=== PATIENT | male | born 1975 | race Caucasian/White ===

== ENCOUNTER → 2017-09-08 | Outpatient (CLI) | payer OTHER ==
--- NOTE | 2017-09-08 08:55 | XR ---
EXAMINATION TYPE: XR Hip Complete RT DATE OF EXAM: 09/08/2017 COMPARISON: NONE HISTORY: Pain TECHNIQUE: 2 views submitted FINDINGS: There is no evidence of erosive change or acute fracture. SI joint is patent. IMPRESSION: 1. No evidence of acute fracture or dislocation.
== END | disposition home or self-care (01) ==
LOC: RADXRMAIN 08:08
PROVIDERS: ATTEND Family Medicine
DX: M25.551 Pain in right hip (principal)
CPT/HCPCS: 73502

== ENCOUNTER → 2017-09-29 | Outpatient (CLI) | payer OTHER ==
--- NOTE | 2017-09-29 08:39 | MR ---
EXAMINATION TYPE: MR hip RT wo con DATE OF EXAM: 09/29/2017 COMPARISON: Right hip radiographs dated 09/08/2018 HISTORY: Right hip pain for approximately 18 years TECHNIQUE Standard multiplanar, multisequence MRI departmental protocol. Multiplanar, multisequence images of the right hip were acquired without intravenous contrast. FINDINGS: There is a small fat filled right inguinal hernia. No left inguinal hernia is identified. T he femoral heads maintain a rounded morphology without evidence of avascular necrosis, subchondral fr acture, subchondral collapse, or acute fracture. No bone marrow edema is identified. There is mild fe moral acetabular arthropathy demonstrated bilaterally that is symmetric with minimal joint space narr owing and minimal acetabular roof sclerosis. No suspicious osseous lesions are seen. Evaluation of th e labrum is limited on this nonarthrographic study and evaluation is also slightly limited throughout the exam secondary to patient motion artifact. The sacroiliac joints are symmetric. No evidence of sacroiliac joint space widening. Hip girdle muscu lature volume and signal are grossly unremarkable other than very subtle and mild increased signal at the greater trochanter on the right at the insertion of the gluteal musculature. Urinary bladder wright are circumferentially thickened although this likely relates to incomplete dist ention. Incidental note is made of a probable left hydrocele. IMPRESSION: 1. Small fat filled right inguinal hernia. 2. No evidence of acute fracture, dislocation, suspicious osseous lesion, bone marrow edema, or avasc ular necrosis of the hips. 3. Mild bilateral femoral acetabular arthropathy. 4. Minimal increased signal at the insertion site of the right gluteal musculature on the greater tro chanter that may indicate mild gluteal bursitis or gluteal tendinosis. 5. Circumferential thickening of the urinary bladder wall, likely related to incomplete distention al though correlation with urinalysis is recommended to exclude cystitis.
== END | disposition home or self-care (01) ==
LOC: RADMRIMAIN 07:38
PROVIDERS: ATTEND Family Medicine
DX: M16.0 Bilateral primary osteoarthritis of hip (principal); R93.7 Abnormal findings on diagnostic imaging of other parts of musculoskeletal system

== ENCOUNTER → 2017-12-08 | Outpatient (CLI) | payer OTHER | END | disposition home or self-care (01) | LOC: LABWHC1 14:42 | PROVIDERS: ATTEND Family Medicine | DX: R07.89 Other chest pain (principal) | CPT/HCPCS: 36415; 93005 ==

== ENCOUNTER → 2017-12-22 | Outpatient (CLI) | payer OTHER ==
--- NOTE | 2017-12-22 12:05 | EST ---
EXERCISE STRESS AGE: 42 SEX: M HT: 64" WT: 148 PROTOCOL: Rogelio Stress Test STAGE: 5 DURATION OF EXERCISE: 11:34 HEART RATE REST: 85 BLOOD PRESSURE REST: 137/74 MAXIMUM HEART RATE ACHIEVED: 166 MAXIMUM BLOOD PRESSURE: 212/97 85% MPHR: 153 100% MPHR: 180 METS: 12.3 INDICATIONS: Chest pain. CLINICAL INFORMATION: Baseline EKG revealed normal sinus rhythm without significant ST-T changes. Patient walked on a standard Rogelio protocol for 12 minutes, achieved a maximal heart rate of 166 beats per minute. He developed fatigue and shortness of breath but did not have any angina or arrhythmia. EKG did not reveal any ST-segment changes to indicate ischemia. By EKG criteria, this is a negative stress test with excellent exercise capacity. IMPRESSION: 1. Negative stress test. Good exercise capacity. 2. No EKG changes or angina. MMWARD / ASHKANN: [id number] /
== END | disposition home or self-care (01) ==
LOC: RADNMMAIN 11:09
PROVIDERS: ATTEND Family Medicine
DX: R07.9 Chest pain, unspecified (principal)
CPT/HCPCS: 93017

== ENCOUNTER → 2018-08-03 | Outpatient (CLI) | payer BC ==
--- NOTE | 2018-08-03 13:55 | XR ---
Right wrist HISTORY: Trauma 2 weeks prior, pain 4 views of the right wrist Bone mineralization, joint spaces and alignment are maintained. IMPRESSION: No fracture or dislocation.
== END | disposition home or self-care (01) ==
LOC: RADXRMAIN 11:23
PROVIDERS: ATTEND Family Medicine
DX: M25.531 Pain in right wrist (principal)

== ENCOUNTER → 2019-01-25 | Outpatient (CLI) | payer BC ==
--- NOTE | 2019-01-25 10:29 | MR ---
MR right humerus within without contrast HISTORY: Swelling, mass Multiplanar multisequence and postcontrast imaging following 7.5 cc Gadavist IV. There is an overlyin g marker at the site of patient's symptomatology. Bone marrow signal is maintained. At the site of the patient's overlying marker there is a mass which shows fat signal on all pulse sequences. The mass measures approximately 8 x 3.3 x 3.8 cm within the biceps musculature and shows a bilobed and well-circumscribed appearance. No abnormal enhancement fo llowing contrast administration. IMPRESSION: Findings compatible with an intramuscular lipoma.
== END | disposition home or self-care (01) ==
LOC: RADMRIMAIN 09:04
PROVIDERS: ATTEND Family Medicine
DX: R22.31 Localized swelling, mass and lump, right upper limb (principal)

== ENCOUNTER 2020-10-09 22:57 | Inpatient (IN) | payer BC ==
[2020-10-09 23:39] LABS: Glucose,Whole Blood 342 mg/dL (75-99)
[2020-10-09] MEDS ORDERED: ONDANSETRON 4 MG/2 ML VIAL IVP STA (23:49)
[2020-10-09] MEDS ORDERED: SODIUM CHLORIDE 0.9% 1,000 ML IV STA (23:49)
[2020-10-10 00:09] LABS: Basophils # (A) 0.1 k/uL (0-0.2); Basophils % (A) 1 %; Eosinophils % (A) 0 %; HCT 51.6 % (39.0-53.0); HGB 18.2 gm/dL (13.0-17.5); Lymphocytes # (A) 0.9 k/uL (1.0-4.8); Lymphocytes % (A) 10 %; MCH 31.2 pg (25.0-35.0); MCHC 35.3 g/dL (31.0-37.0); MCV 88.6 fL (80.0-100.0); Mean Platelet Volume 9.7; Monocytes # (A) 0.4 k/uL (0-1.0); Monocytes % (A) 4 %; Neutrophils # (A) 8.2 k/uL (1.3-7.7); Neutrophils % (A) 84 %; Platelet Count 208 k/uL (150-450); RBC 5.83 m/uL (4.30-5.90); RDW 12.9 % (11.5-15.5); WBC 9.7 k/uL (3.8-10.6)
[2020-10-10 00:25] LABS: ALT 44 U/L (4-49); AST 34 U/L (17-59); African American GFR (CKD) >90 (>60 ml/min/1.73 sqM); Albumin 4.7 g/dL (3.5-5.0); Alkaline Phosphatase 137 U/L (38-126); Anion Gap 25 mmol/L; Blood Urea Nitrogen 18 mg/dL (9-20); Calcium 9.8 mg/dL (8.4-10.2); Chloride 99 mmol/L (98-107); Glucose 373 mg/dL (74-99); Lipase 37 U/L (23-300); Non-African American GFR(CKD) >90 (>60 ml/min/1.73 sqM); Potassium 4.9 mmol/L (3.5-5.1); Sodium 133 mmol/L (137-145); Total Bilirubin 0.7 mg/dL (0.2-1.3); Total Protein 7.8 g/dL (6.3-8.2)
--- NOTE | 2020-10-10 00:51 | ED ---
Nausea/Vomiting/Diarrhea HPI - General Source: patient Mode of arrival: wheelchair Limitations: no limitations <Angelica Jorge - Last Filed: 10/10/20 02:34> <Catia Cope - Last Filed: 10/15/20 02:54> - General Chief complaint: Nausea/Vomiting/Diarrhea Stated complaint: weakness, covid+ Time Seen by Provider: 10/09/20 23:42 - History of Present Illness Initial comments: Patient is a 45-year-old male, with history of DM, presenting to the emergency Department with complaints of nausea and vomiting and some abdominal cramping that started last few days. Patient tested positive for Covid on 10/05/2020. He states most of the symptoms have been related to the nausea, body aches and fatigue. He denies any chest pains, no shortness of breath or coughing. He states some mild diarrhea but that has since gotten better. He states he is not able to keep anything down and feels really dehydrated. He does have history of diabetes. He states he has not been eating much food so has not been checking her sugars or taking his insulin. He is no further complaints at this time. Upon arrival to the ER, he is slightly tachycardia, Rest of vitals normal. (Angelica Jorge) - Related Data Home Medications Medication Instructions Recorded Confirmed Atorvastatin [Lipitor] 80 mg PO AC-SUPPER 10/10/20 10/10/20 Previous Rx's Medication Instructions Recorded Insulin Aspart (Niacinamide) 5 units SQ AC-TID #0 10/11/20 [Fiasp 100 Unit/ml Flextouch] Insulin Degludec [Tresiba 44 units SQ HS #0 10/11/20 Flextouch U-200] Allergies Allergy/AdvReac Type Severity Reaction Status Date / Time No Known Allergies Allergy Verified 10/10/20 10:00 Review of Systems ROS Other: All systems not noted in ROS Statement are negative. <Angelica Jorge - Last Filed: 10/10/20 02:34> ROS Other: All systems not noted in ROS Statement are negative. <Catia Cope - Last Filed: 10/15/20 02:54> ROS Statement: Those systems with pertinent positive or pertinent negative responses have been documented in the HPI. Past Medical History Past Medical History: Diabetes Mellitus History of Any Multi-Drug Resistant Organisms: None Reported Past Surgical History: Hernia Repair Past Psychological History: No Psychological Hx Reported Smoking Status: Former smoker Past Alcohol Use History: None Reported Past Drug Use History: Marijuana <Angelica Jorge - Last Filed: 10/10/20 02:34> General Exam Limitations: no limitations <Angelica Jorge - Last Filed: 10/10/20 02:34> - General Exam Comments Initial Comments: GENERAL: Patient is well-developed and well-nourished. Patient is nontoxic and in mild distress, actively dry heaving. HEAD: Atraumatic, normocephalic. EYES: Pupils equal round and reactive to light, extraocular movements intact, sclera anicteric, conjunctiva are normal. Eyelids were unremarkable. ENT: TMs normal, nares patent, oropharynx clear without exudates. Moist mucous membranes. NECK: Normal range of motion, supple without lymphadenopathy or JVD. LUNGS: Unlabored respirations. Breath sounds clear to auscultation bilaterally and equal. No wheezes rales or rhonchi. HEART: Regular rate and rhythm without murmurs, rubs or gallops. ABDOMEN: Soft, he has scattered mild discomfort on palpation, no specific area pain., normoactive bowel sounds. No guarding, no rebound. No masses appreciated. : Deferred MUSCULOSKELETAL: Normal extremities with adequate strength and normal range of motion, no pitting or edema. No clubbing or cyanosis. NEUROLOGICAL: Patient is alert and oriented x 3. Motor and sensory are also intact. Cranial nerves II through XII grossly intact. Symmetrical smile. Normal speech, normal gait. PSYCH: Normal mood, normal affect. SKIN: Warm, Dry, normal turgor, no rashes or lesions noted. (Angelica Jorge) Course Vital Signs 10/09/20 10/10/20 10/10/20 22:59 01:03 02:59 Temperature 97.4 F L Pulse Rate 119 H 89 77 Respiratory 22 16 Rate Blood Pressure 158/91 133/80 O2 Sat by Pulse 98 98 98 Oximetry Medical Decision Making - Lab Data Result diagrams: 10/10/20 00:00 10/10/20 00:00 <Angelica Jorge - Last Filed: 10/10/20 02:34> - Lab Data Result diagrams: 10/10/20 00:00 10/11/20 14:07 <Catia Cope - Last Filed: 10/15/20 02:54> - Medical Decision Making Patient is a 45-year-old male with history of diabetes presenting with nausea and vomiting over the past few days. He is Covid positive, positive test on 10/05/2020. No respiratory symptoms. His vital signs are stable. Labs show a normal white count, VBG shows 7.26, bicarbonate 14, sodium is 133, potassium is 4.9. Carbon dioxide is low at 9. Glucose is 373, urine shows 4+ glucose and 4+ ketones. Acetone is positive. Patient given 2 L fluid bolus. Patient will be admitted for DKA, started on insulin drip. Patient accepted by Dr. Campos for Dr. Guevara. Case discussed with Dr. Cope. (Angelica Jorge) I was available for consultation in the emergency department. The history and physical exam were done by the midlevel provider. I was consulted for this patie nts care. I reviewed the case with the midlevel provider and based on their presentation of the patient, I agree with the assessment, medical decision making and plan of care as documented. Chart was dictated using [employer] dictation software. Attempts were made to correct any dictation errors however some typographical errors may persist. Patient was seen during a national state of emergency due to the Covid-19 pandemic. (Catia Cope) - Lab Data Lab Results 10/09/20 10/10/20 10/10/20 Range/Units 23:38 00:00 00:00 WBC 9.7 (3.8-10.6) k/uL RBC 5.83 (4.30-5.90) m/uL Hgb 18.2 H (13.0-17.5) gm/dL Hct 51.6 (39.0-53.0) % MCV 88.6 (80.0-100.0) fL MCH 31.2 (25.0-35.0) pg MCHC 35.3 (31.0-37.0) g/dL RDW 12.9 (11.5-15.5) % Plt Count 208 (150-450) k/uL MPV 9.7 Neutrophils % 84 % Lymphocytes % 10 % Monocytes % 4 % Eosinophils % 0 % Basophils % 1 % Neutrophils # 8.2 H (1.3-7.7) k/uL Lymphocytes # 0.9 L (1.0-4.8) k/uL Monocytes # 0.4 (0-1.0) k/uL Eosinophils # 0.0 (0-0.7) k/uL Basophils # 0.1 (0-0.2) k/uL VBG pH (7.31-7.41) VBG pCO2 (37-51) mmHg VBG HCO3 (24-28) mmol/L Sodium 133 L (137-145) mmol/L Potassium 4.9 (3.5-5.1) mmol/L Chloride 99 (98-107) mmol/L Carbon Dioxide 9 L* (22-30) mmol/L Anion Gap 25 mmol/L BUN 18 (9-20) mg/dL Creatinine 0.76 (0.66-1.25) mg/dL Est GFR (CKD-EPI)AfAm >90 (>60 ml/min/1.73 sqM) Est GFR (CKD-EPI)NonAf >90 (>60 ml/min/1.73 sqM) Glucose 373 H (74-99) mg/dL POC Glucose (mg/dL) 342 H (75-99) mg/dL POC Glu Sourcing Intern ID Deanna Hyman Calcium 9.8 (8.4-10.2) mg/dL Total Bilirubin 0.7 (0.2-1.3) mg/dL AST 34 (17-59) U/L ALT 44 (4-49) U/L Alkaline Phosphatase 137 H (38-126) U/L Total Protein 7.8 (6.3-8.2) g/dL Albumin 4.7 (3.5-5.0) g/dL Lipase 37 (23-300) U/L Urine Color Urine Appearance (Clear) Urine pH (5.0-8.0) Ur Specific Gardner (1.001-1.035) Urine Protein (Negative) Urine Glucose (UA) (Negative) Urine Ketones (Negative) Urine Blood (Negative) Urine Nitrite (Negative) Urine Bilirubin (Negative) Urine Urobilinogen (<2.0) mg/dL Ur Leukocyte Esterase (Negative) Urine RBC (0-5) /hpf Urine WBC (0-5) /hpf Hyaline Casts (0-2) /lpf Urine Mucus (None) /hpf Acetone, Qual (Negative) 10/10/20 10/10/20 10/10/20 Range/Units 00:00 01:17 01:44 WBC (3.8-10.6) k/uL RBC (4.30-5.90) m/uL Hgb (13.0-17.5) gm/dL Hct (39.0-53.0) % MCV (80.0-100.0) fL MCH (25.0-35.0) pg MCHC (31.0-37.0) g/dL RDW (11.5-15.5) % Plt Count (150-450) k/uL MPV Neutrophils % % Lymphocytes % % Monocytes % % Eosinophils % % Basophils % % Neutrophils # (1.3-7.7) k/uL Lymphocytes # (1.0-4.8) k/uL Monocytes # (0-1.0) k/uL Eosinophils # (0-0.7) k/uL Basophils # (0-0.2) k/uL VBG pH 7.26 L (7.31-7.41) VBG pCO2 33 L (37-51) mmHg VBG HCO3 14 L (24-28) mmol/L Sodium (137-145) mmol/L Potassium (3.5-5.1) mmol/L Chloride (98-107) mmol/L Carbon Dioxide (22-30) mmol/L Anion Gap mmol/L BUN (9-20) mg/dL Creatinine (0.66-1.25) mg/dL Est GFR (CKD-EPI)AfAm (>60 ml/min/1.73 sqM) Est GFR (CKD-EPI)NonAf (>60 ml/min/1.73 sqM) Glucose (74-99) mg/dL POC Glucose (mg/dL) (75-99) mg/dL POC Glu Sourcing Intern ID Calcium (8.4-10.2) mg/dL Total Bilirubin (0.2-1.3) mg/dL AST (17-59) U/L ALT (4-49) U/L Alkaline Phosphatase (38-126) U/L Total Protein (6.3-8.2) g/dL Albumin (3.5-5.0) g/dL Lipase (23-300) U/L Urine Color Light Yellow Urine Appearance Clear (Clear) Urine pH 5.0 (5.0-8.0) Ur Specific Gardner 1.034 (1.001-1.035) Urine Protein 1+ H (Negative) Urine Glucose (UA) 4+ H (Negative) Urine Ketones 4+ H (Negative) Urine Blood Negative (Negative) Urine Nitrite Negative (Negative) Urine Bilirubin Negative (Negative) Urine Urobilinogen <2.0 (<2.0) mg/dL Ur Leukocyte Esterase Negative (Negative) Urine RBC <1 (0-5) /hpf Urine WBC 1 (0-5) /hpf Hyaline Casts 1 (0-2) /lpf Urine Mucus Rare H (None) /hpf Acetone, Qual Positive (Negative) Critical Care Time Critical Care Time: Yes Total Critical Care Time: 35 (History of diabetes, 2 days of nausea and vomiting, cold with positive. Patient is in DKA, started on insulin drip, patient be admitted to hospital.) <Angelica Jorge - Last Filed: 10/10/20 02:34> Disposition Decision Date: 10/10/20 Decision Time: 02:15 <Angelica Jorge - Last Filed: 10/10/20 02:34> <Catia Cope - Last Filed: 10/15/20 02:54> Clinical Impression: DKA (diabetic ketoacidoses), COVID-19 Disposition: ADMITTED IP TO THIS [facility] Condition: Stable
[2020-10-10 01:07] LABS: Carbon Dioxide 9 mmol/L (22-30)
[2020-10-10 01:26] LABS: VBG PH 7.26 (7.31-7.41)
[2020-10-10 01:48] LABS: Appearance,Urine Clear (Clear); Bilirubin,Urine Negative (Negative); Blood,Urine Negative (Negative); Color,Urine Light Yellow; Glucose,Urine (UA) 4+ (Negative); Hyaline Casts,Urine 1 /lpf (0-2); Leukocyte Esterase,Urine Negative (Negative); Mucus,Urine Rare /hpf; Nitrite,Urine Negative (Negative); Protein,Urine 1+ (Negative); RBC,Urine <1 /hpf (0-5); Specific Gravity,Urine 1.034 (1.001-1.035); Urobilinogen,Urine <2.0 mg/dL (<2.0); WBC,Urine 1 /hpf (0-5)
[2020-10-10 01:59] LABS: Ketones,Urine 4+ (Negative)
[2020-10-10] MEDS ORDERED: SODIUM CHLORIDE 0.9% 1,000 ML IV STA (02:02)
[2020-10-10] MEDS ORDERED: D5-0.45% NACL WITH KCL 20MEQ/L 1,000 ML IV SCH (02:15)
[2020-10-10] MEDS ORDERED: INSULIN REGULAR 100 UNIT in SODIUM CHLORIDE 0.9% 100 ML IV SCH (02:30)
[2020-10-10] MEDS: SODIUM CHLORIDE 0.9% 1,000 ML IV SCH ×5 (02:33→21:02)
[2020-10-10 04:09] LABS: Glucose,Whole Blood 218 mg/dL (75-99)
[2020-10-10 05:05] LABS: Glucose,Whole Blood 174 mg/dL (75-99)
[2020-10-10] MEDS: D5-0.45% NACL WITH KCL 20MEQ/L 1,000 ML IV SCH ×2 (05:32→12:44)
[2020-10-10 05:51] LABS: African American GFR (CKD) >90 (>60 ml/min/1.73 sqM); Anion Gap 15 mmol/L; Blood Urea Nitrogen 17 mg/dL (9-20); Carbon Dioxide 13 mmol/L (22-30); Chloride 110 mmol/L (98-107); Glucose 182 mg/dL (74-99); Non-African American GFR(CKD) >90 (>60 ml/min/1.73 sqM); Phosphorus 2.7 mg/dL (2.5-4.5); Potassium 4.1 mmol/L (3.5-5.1); Sodium 138 mmol/L (137-145)
[2020-10-10 05:57] LABS: Glucose,Whole Blood 168 mg/dL (75-99)
[2020-10-10 07:09] LABS: Glucose,Whole Blood 141 mg/dL (75-99)
[2020-10-10 08:00] LABS: Glucose,Whole Blood 153 mg/dL (75-99)
[2020-10-10 09:08] LABS: Glucose,Whole Blood 132 mg/dL (75-99)
[2020-10-10 09:15] LABS: African American GFR (CKD) >90 (>60 ml/min/1.73 sqM); Anion Gap 9 mmol/L; Blood Urea Nitrogen 16 mg/dL (9-20); Carbon Dioxide 18 mmol/L (22-30); Chloride 109 mmol/L (98-107); Glucose 142 mg/dL (74-99); Non-African American GFR(CKD) >90 (>60 ml/min/1.73 sqM); Phosphorus 2.3 mg/dL (2.5-4.5); Sodium 136 mmol/L (137-145)
[2020-10-10 10:08] LABS: Glucose,Whole Blood 116 mg/dL (75-99)
[2020-10-10] MEDS ORDERED: INSULIN NPH 300 UNIT/3 ML VIAL SQ SCH (10:45)
[2020-10-10 10:56] LABS: Glucose,Whole Blood 104 mg/dL (75-99)
[2020-10-10 11:47] LABS: Glucose,Whole Blood 116 mg/dL (75-99)
[2020-10-10] MEDS: INSULIN ASPART (NovoLOG) 100 UNIT/ML VIAL SQ SCH ×5 (12:22→21:01)
[2020-10-10] MEDS: ENOXAPARIN 40 MG/0.4 ML SYRINGE SQ SCH (12:39)
[2020-10-10 13:45] VITALS: BMI 25.8
[2020-10-10 16:45] LABS: Glucose,Whole Blood 199 mg/dL (75-99)
[2020-10-10] MEDS: METOCLOPRAMIDE 10 MG TAB PO SCH (17:06)
[2020-10-10] MEDS ORDERED: ATORVASTATIN 80 MG TAB PO SCH (17:30)
[2020-10-10 19:44] LABS: Glucose,Whole Blood 173 mg/dL (75-99)
--- NOTE | 2020-10-10 19:58 | P.HPIM ---
History of Present Illness H&P Date: 10/10/20 Chief Complaint: Short of breath History of presenting complaint: This is a pleasant 44-year-old patient of Dr. Park Cardenas. Patient presents to the ER with nausea vomiting some abdominal cramping starting about to 3 days ago. Patient has tested positive for COVID on October 05. Patient decided not to take his long-acting insulin. 2 days prior to the COVID testing positive feels tired sluggish. Became short of breath. Some cough. Decrease appetite. No diarrhea. Had headaches and body aches. Loss of smell and taste. Patient presented to ER was found to be in diabetic ketoacidosis. Put on insulin drip. This morning his anion gap closed. Denied any fever and chills has slight nausea. Review of systems: GEN.: Tired, decreased appetite EYES: None HEENT: None NECK: None RESPIRATORY: As above CARDIOVASCULAR: None GASTROINTESTINAL: As above GENITOURINARY: None MUSCULOSKELETAL: Bodyache LYMPHATICS: None HEMATOLOGICAL: None PSYCHIATRY: None NEUROLOGICAL: None Past medical history to include: Diabetes, Social history: . Works at the [employer]. Marijuana occasionally. Physical examination: VITAL SIGNS: 97.4, 119, 22, 158/91, 98% room air upon presentation GENERAL: BMI 25.8, laying in bed a bit tired awake. EYES: Pupils equal. Conjunctiva normal. HEENT: External appearance of nose and ears normal, oral cavity dry. NECK: JVD not raised; masses not palpable. HEART: First and second heart sounds are normal; no edema. LUNGS: Respiratory rate normal; clear to auscultation. ABDOMEN: Soft, nontender, liver spleen not palpable, no masses palpable. PSYCH: Alert and oriented x3; mood and affect normal. NEUROLOGICAL: Cranial nerves grossly intact; no facial asymmetry, power and sensation grossly intact. LYMPHATICS: No lymph nodes palpable in the axilla and neck INVESTIGATIONS, reviewed in the clinical context: WBC 9.7 hemoglobin 18.2 platelets 208 potassium 4.9 creatinine 0.76 bicarb 9 blood glucose 373 blood acetone positive Coronavirus [PCR]-detected Assessment and plan: -Diabetic ketoacidosis from having patient missed his insulin Patient is put on a DQ protocol and IV insulin drip. Patient is gap corrected this morning. -Diabetes mellitus type 1 I ordered insulin NPH 20 units this morning. We will resume patient's long- acting insulin this evening. -Acute gastroenteritis possibly from COVID 19 Self-limiting. IV fluids Care was discussed with the patient. We'll put the patient on full liquids for lunch. Increase activity as tolerated. Lovenox for DVT prophylaxis. See how he progresses. Repeat labs in the morning. Past Medical History Past Medical History: Diabetes Mellitus, Eye Disorder History of Any Multi-Drug Resistant Organisms: None Reported Past Surgical History: Hernia Repair Past Psychological History: No Psychological Hx Reported Smoking Status: Former smoker Past Alcohol Use History: None Reported Past Drug Use History: Marijuana - Past Family History Father Family Medical History: Cancer Medications and Allergies Home Medications Medication Instructions Recorded Confirmed Type Atorvastatin [Lipitor] 80 mg PO AC-SUPPER 10/10/20 10/10/20 History Insulin Aspart (Niacinamide) 10 units SQ BID 10/10/20 10/10/20 History [Fiasp 100 Unit/ml Flextouch] Insulin Degludec [Tresiba 60 units SQ HS 10/10/20 10/10/20 History Flextouch U-200] Allergies Allergy/AdvReac Type Severity Reaction Status Date / Time No Known Allergies Allergy Verified 10/10/20 10:00 Physical Exam Vitals: Vital Signs Temp Pulse Pulse Resp BP BP Pulse Ox 10/10/20 08:00 97.8 F 95 18 128/76 99 10/10/20 04:00 97.7 F 95 18 155/89 99 10/10/20 02:59 77 16 133/80 98 10/10/20 01:03 89 98 10/09/20 22:59 97.4 F L 119 H 22 158/91 98 Intake and Output 10/09/20 10/10/20 10/10/20 22:59 06:59 14:59 Intake Total 23.479 15.950 Output Total 300 450 Balance -276.521 -434.050 Intake: Intake, IV Titration 23.479 15.950 Amount Insulin Regular 100 unit 23.479 15.950 In Sodium Chloride 0.9% 100 ml @ 0.1 UNITS/KG/HR 6.872 mls/hr IV .[id number] [facility] Rx#:[id number] Output: Urine 300 450 Other: Weight 68.039 kg 68.3 kg Results CBC & Chem 7: 10/10/20 00:00 10/10/20 08:36 Labs: Abnormal Lab Results - Last 24 Hours (Table) 10/09/20 10/10/20 10/10/20 Range/Units 23:38 00:00 00:00 Hgb 18.2 H (13.0-17.5) gm/dL Neutrophils # 8.2 H (1.3-7.7) k/uL Lymphocytes # 0.9 L (1.0-4.8) k/uL VBG pH (7.31-7.41) VBG pCO2 (37-51) mmHg VBG HCO3 (24-28) mmol/L Sodium 133 L (137-145) mmol/L Chloride (98-107) mmol/L Carbon Dioxide 9 L* (22-30) mmol/L Creatinine (0.66-1.25) mg/dL Glucose 373 H (74-99) mg/dL POC Glucose (mg/dL) 342 H (75-99) mg/dL Phosphorus (2.5-4.5) mg/dL Alkaline Phosphatase 137 H (38-126) U/L Urine Protein (Negative) Urine Glucose (UA) (Negative) Urine Ketones (Negative) Urine Mucus (None) /hpf Coronavirus (PCR) (Not Detectd) 10/10/20 10/10/20 10/10/20 Range/Units 01:17 01:44 02:41 Hgb (13.0-17.5) gm/dL Neutrophils # (1.3-7.7) k/uL Lymphocytes # (1.0-4.8) k/uL VBG pH 7.26 L (7.31-7.41) VBG pCO2 33 L (37-51) mmHg VBG HCO3 14 L (24-28) mmol/L Sodium (137-145) mmol/L Chloride (98-107) mmol/L Carbon Dioxide (22-30) mmol/L Creatinine (0.66-1.25) mg/dL Glucose (74-99) mg/dL POC Glucose (mg/dL) (75-99) mg/dL Phosphorus (2.5-4.5) mg/dL Alkaline Phosphatase (38-126) U/L Urine Protein 1+ H (Negative) Urine Glucose (UA) 4+ H (Negative) Urine Ketones 4+ H (Negative) Urine Mucus Rare H (None) /hpf Coronavirus (PCR) Detected A (Not Detectd) 10/10/20 10/10/20 10/10/20 Range/Units 04:08 04:49 05:04 Hgb (13.0-17.5) gm/dL Neutrophils # (1.3-7.7) k/uL Lymphocytes # (1.0-4.8) k/uL VBG pH (7.31-7.41) VBG pCO2 (37-51) mmHg VBG HCO3 (24-28) mmol/L Sodium (137-145) mmol/L Chloride 110 H (98-107) mmol/L Carbon Dioxide 13 L (22-30) mmol/L Creatinine 0.65 L (0.66-1.25) mg/dL Glucose 182 H (74-99) mg/dL POC Glucose (mg/dL) 218 H 174 H (75-99) mg/dL Phosphorus (2.5-4.5) mg/dL Alkaline Phosphatase (38-126) U/L Urine Protein (Negative) Urine Glucose (UA) (Negative) Urine Ketones (Negative) Urine Mucus (None) /hpf Coronavirus (PCR) (Not Detectd) 10/10/20 10/10/20 10/10/20 Range/Units 05:56 07:05 07:57 Hgb (13.0-17.5) gm/dL Neutrophils # (1.3-7.7) k/uL Lymphocytes # (1.0-4.8) k/uL VBG pH (7.31-7.41) VBG pCO2 (37-51) mmHg VBG HCO3 (24-28) mmol/L Sodium (137-145) mmol/L Chloride (98-107) mmol/L Carbon Dioxide (22-30) mmol/L Creatinine (0.66-1.25) mg/dL Glucose (74-99) mg/dL POC Glucose (mg/dL) 168 H 141 H 153 H (75-99) mg/dL Phosphorus (2.5-4.5) mg/dL Alkaline Phosphatase (38-126) U/L Urine Protein (Negative) Urine Glucose (UA) (Negative) Urine Ketones (Negative) Urine Mucus (None) /hpf Coronavirus (PCR) (Not Detectd) 04/15/21 04/15/21 04/15/21 Range/Units 08:36 09:02 10:05 Hgb (13.0-17.5) gm/dL Neutrophils # (1.3-7.7) k/uL Lymphocytes # (1.0-4.8) k/uL VBG pH (7.31-7.41) VBG pCO2 (37-51) mmHg VBG HCO3 (24-28) mmol/L Sodium 136 L (137-145) mmol/L Chloride 109 H (98-107) mmol/L Carbon Dioxide 18 L (22-30) mmol/L Creatinine 0.65 L (0.66-1.25) mg/dL Glucose 142 H (74-99) mg/dL POC Glucose (mg/dL) 132 H 116 H (75-99) mg/dL Phosphorus 2.3 L (2.5-4.5) mg/dL Alkaline Phosphatase (38-126) U/L Urine Protein (Negative) Urine Glucose (UA) (Negative) Urine Ketones (Negative) Urine Mucus (None) /hpf Coronavirus (PCR) (Not Detectd) Thrombosis Risk Factor Assmnt - Choose All That Apply Each Factor Represents 1 point: Age 41-60 years, Serious lung disease incl. pne umonia (< 1month) Other Risk Factors: No Thrombosis Risk Factor Assessment Total Risk Factor Score: 2 Thrombosis Risk Factor Assessment Level: Low Risk
[2020-10-10] MEDS ORDERED: INSULIN DETEMIR (LEVEMIR) 100 UNIT/ML SYR SQ SCH ×3 (21:00)
[2020-10-11] MEDS ORDERED: ACETAMINOPHEN TAB 325 MG TAB PO PRN (04:25)
[2020-10-11 06:15] LABS: Glucose,Whole Blood 56 mg/dL (75-99)
[2020-10-11 06:33] LABS: Glucose,Whole Blood 84 mg/dL (75-99)
[2020-10-11] MEDS: INSULIN ASPART (NovoLOG) 100 UNIT/ML VIAL SQ SCH ×4 (06:53→11:56)
[2020-10-11] MEDS: SODIUM CHLORIDE 0.9% 1,000 ML IV SCH (06:57)
[2020-10-11] MEDS: METOCLOPRAMIDE 10 MG TAB PO SCH ×2 (06:57→12:23)
[2020-10-11] MEDS: ENOXAPARIN 40 MG/0.4 ML SYRINGE SQ SCH (09:06)
[2020-10-11 09:14] VITALS: TEMP 98.1
[2020-10-11 11:52] VITALS: BP 133/81; PULSE 78; RESP 16
[2020-10-11 12:06] LABS: Glucose,Whole Blood 67 mg/dL (75-99)
[2020-10-11 12:15] LABS: Glucose,Whole Blood 83 mg/dL (75-99)
[2020-10-11 15:11] LABS: African American GFR (CKD) >90 (>60 ml/min/1.73 sqM); Anion Gap 9 mmol/L; Blood Urea Nitrogen 9 mg/dL (9-20); Calcium 8.5 mg/dL (8.4-10.2); Carbon Dioxide 19 mmol/L (22-30); Chloride 107 mmol/L (98-107); Glucose 181 mg/dL (74-99); Non-African American GFR(CKD) >90 (>60 ml/min/1.73 sqM); Potassium 3.9 mmol/L (3.5-5.1); Sodium 135 mmol/L (137-145)
--- NOTE | 2020-10-12 00:34 | P.DS ---
Providers Date of admission: 10/10/20 01:53 Expected date of discharge: 10/11/20 Attending physician: Killian Guevara Primary care physician: Az Cardenas [facility] Course: Chief Complaint: Short of breath History of presenting complaint: This is a pleasant 44-year-old patient of Dr. Park Cardenas. Patient presents to the ER with nausea vomiting some abdominal cramping starting about to 3 days ago. Patient has tested positive for COVID on October 05. Patient decided not to take his long-acting insulin. 2 days prior to the COVID testing positive feels tired sluggish. Became short of breath. Some cough. Decrease appetite. No diarrhea. Had headaches and body aches. Loss of smell and taste. Patient presented to ER was found to be in diabetic ketoacidosis. Put on insulin drip. This morning his anion gap closed. Denied any fever and chills has slight nausea. Today: Patient doing much better. Does of insulin was cut back. cutback. Eating better. Care was discussed with the patient. Patient is asymptomatic from a COVID 19 standpoint. No shortness breath. No fever. Past medical history to include: Diabetes, Social history: . Works at the [employer]. Marijuana occasionally. Physical examination: VITAL SIGNS: 98.1, 78, 16, 133 bun 81, 98% room air GENERAL: BMI 25.8, laying in bed comfortable EYES: Pupils equal. Conjunctiva normal. HEENT: External appearance of nose and ears normal, oral cavity dry. NECK: JVD not raised; masses not palpable. HEART: First and second heart sounds are normal; no edema. LUNGS: Respiratory rate normal; clear to auscultation. ABDOMEN: Soft, nontender, liver spleen not palpable, no masses palpable. PSYCH: Alert and oriented x3; mood and affect normal. INVESTIGATIONS, reviewed in the clinical context: D-dimer 1.11 potassium 3.9 creatinine 0.53 CRP 2.9 WBC 9.7 hemoglobin 18.2 platelets 208 potassium 4.9 creatinine 0.76 bicarb 9 blood glucose 373 blood acetone positive Coronavirus [PCR]-detected Assessment and plan: -Diabetic ketoacidosis from having patient missed his insulin Patient is put on a DKA protocol and IV insulin drip. Responded well -Diabetes mellitus type 1 Insulin -Acute gastroenteritis possibly from COVID 19 Self-limiting. IV fluids -COVID 19 infection Disposition: Home Patient Condition at Discharge: Stable Plan - Discharge Summary New Discharge Prescriptions: Continue Atorvastatin [Lipitor] 80 mg PO AC-SUPPER Changed Insulin Aspart (Niacinamide) [Fiasp 100 Unit/ml Flextouch] 5 units SQ AC-TID #0 Insulin Degludec [Tresiba Flextouch U-200] 44 units SQ HS #0 Discharge Medication List Atorvastatin [Lipitor] 80 mg PO AC-SUPPER 10/10/20 [History] Insulin Aspart (Niacinamide) [Fiasp 100 Unit/ml Flextouch] 5 units SQ AC-TID #0 10/11/20 [Rx] Insulin Degludec [Tresiba Flextouch U-200] 44 units SQ HS #0 10/11/20 [Rx] Follow up Appointment(s)/Referral(s): Az Cardenas DO [Primary Care Provider] - 1-2 days Patient Instructions/Handouts: Coronavirus Disease 2019 (COVID-19), Diabetic Ketoacidosis (DC) Discharge Disposition: HOME SELF-CARE
== END 2020-10-11 15:07 | disposition home or self-care (01) | DRG 637 ==
LOC: EC 22:57 → 3SCARD 10-10 01:53
PROVIDERS: ADMIT Hospitalist; ATTEND Hospitalist
DX: E10.10 Type 1 diabetes mellitus with ketoacidosis without coma (principal); U07.1 COVID-19; A08.39 Other viral enteritis; Z79.4 Long term (current) use of insulin; Z87.891 Personal history of nicotine dependence; H57.9 Unspecified disorder of eye and adnexa; Z79.899 Other long term (current) drug therapy
CPT/HCPCS: 36415; 80048; 80051; 80053; 81001; 82009; 82565; 82803; 82947; 83690; 84100; 84520; 85025; 85379; 86140; 87635; 96361; 96374; 99285

== ENCOUNTER 2021-05-19 19:46 | Inpatient (IN) | payer BC ==
[2021-05-19 21:19] LABS: Glucose,Whole Blood 413 mg/dL (75-99)
[2021-05-19] MEDS ORDERED: SODIUM CHLORIDE 0.9% 1,000 ML IV STA (21:58)
[2021-05-19] MEDS ORDERED: METOCLOPRAMIDE 5 MG/ML 2 ML VIAL IVP STA (22:05)
--- NOTE | 2021-05-19 22:08 | ED ---
Abdominal Pain HPI - General Chief Complaint: Abdominal Pain Stated Complaint: Having reaction to covid shot Time Seen by Provider: 05/19/21 21:57 Source: patient, family Mode of arrival: ambulatory Limitations: no limitations - History of Present Illness Initial Comments: This patient is a 46-year-old man with history of insulin-dependent diabetes. Patient states that he had gone for covid vaccination. He was not feeling well the following, and then the day after that Wednesday morning he started having nausea and vomiting. He also is having some diffuse abdominal aches and pains. No change in bowel movements. Patient states that he has had greater than 10 episodes of vomiting per day and that he is not tolerating oral intake. He has not noted blood or coffee-ground emesis. MD Complaint: abdominal pain -: days(s) Location: diffuse Radiation: none Migration to: no migration Severity: moderate Quality: cramping Consistency: constant Improves With: nothing Worsens With: nothing Associated Symptoms: nausea, vomiting - Related Data Home Medications Medication Instructions Recorded Confirmed Atorvastatin [Lipitor] 80 mg PO HS 10/10/20 05/19/21 Ezetimibe [Zetia] 10 mg PO HS 05/19/21 05/19/21 Insulin Aspart (Niacinamide) 20 units SQ BID-W/MEALS 05/19/21 05/19/21 [Fiasp 100 Unit/ml Flextouch Pen] Insulin Degludec [Tresiba 70 units SQ HS 05/19/21 05/19/21 Flextouch U-200 Pen] Previous Rx's Medication Instructions Recorded Ondansetron Odt [Zofran Odt] 4 mg PO Q8HR PRN #6 tab 05/20/21 Allergies Allergy/AdvReac Type Severity Reaction Status Date / Time dapagliflozin [From Farxiga] Allergy Rash/Hives Verified 05/19/21 23:46 insulin aspart Allergy Rash/Hives Verified 05/19/21 23:46 [From Novolog Mix 70-30 U-100 Insuln] insulin aspart protamine Allergy Rash/Hives Verified 05/19/21 23:46 human [From Novolog Mix 70-30 U-100 Insuln] Review of Systems ROS Statement: Those systems with pertinent positive or pertinent negative responses have been documented in the HPI. ROS Other: All systems not noted in ROS Statement are negative. Constitutional: Denies: fever, chills Respiratory: Denies: cough, dyspnea Cardiovascular: Denies: chest pain, palpitations, edema Gastrointestinal: Reports: abdominal pain, nausea, vomiting. Denies: diarrhea, constipation, hematemesis, melena, hematochezia Genitourinary: Denies: dysuria, hematuria, testicular pain Musculoskeletal: Denies: back pain Skin: Denies: rash Neurological: Denies: headache, weakness, numbness Past Medical History Past Medical History: Diabetes Mellitus, Eye Disorder History of Any Multi-Drug Resistant Organisms: None Reported Past Surgical History: Hernia Repair Past Psychological History: No Psychological Hx Reported Smoking Status: Former smoker Past Alcohol Use History: None Reported Past Drug Use History: Marijuana - Past Family History Father Family Medical History: Cancer General Exam Limitations: no limitations General appearance: alert, in no apparent distress Head exam: Present: atraumatic, normocephalic Eye exam: Present: normal appearance. Absent: scleral icterus, conjunctival injection Neck exam: Present: normal inspection, full ROM Respiratory exam: Present: normal lung sounds bilaterally. Absent: respiratory distress, wheezes, rales, rhonchi, stridor Cardiovascular Exam: Present: regular rate, normal rhythm, normal heart sounds. Absent: systolic murmur, diastolic murmur, rubs, gallop GI/Abdominal exam: Present: soft. Absent: distended, tenderness, guarding, rebound, rigid, mass Extremities exam: Present: normal inspection, normal capillary refill. Absent: pedal edema, calf tenderness Back exam: Present: normal inspection. Absent: CVA tenderness (R), CVA tenderness (L) Neurological exam: Present: alert Skin exam: Present: warm, dry, intact, normal color. Absent: rash Course Vital Signs 05/19/21 05/20/21 21:13 00:25 Temperature 97.6 F Pulse Rate 116 H 105 H Respiratory 22 18 Rate Blood Pressure 148/90 146/91 O2 Sat by Pulse 98 99 Oximetry Medical Decision Making - Lab Data Result diagrams: 05/19/21 22:40 05/20/21 07:56 Lab Results 05/19/21 05/19/21 05/19/21 Range/Units 21:17 22:40 22:40 WBC 10.9 H (3.8-10.6) k/uL RBC 5.83 (4.30-5.90) m/uL Hgb 18.2 H (13.0-17.5) gm/dL Hct 54.2 H (39.0-53.0) % MCV 93.0 (80.0-100.0) fL MCH 31.1 (25.0-35.0) pg MCHC 33.5 (31.0-37.0) g/dL RDW 13.0 (11.5-15.5) % Plt Count 278 (150-450) k/uL MPV 9.1 Neutrophils % 90 % Lymphocytes % 5 % Monocytes % 3 % Eosinophils % 0 % Basophils % 0 % Neutrophils # 9.8 H (1.3-7.7) k/uL Lymphocytes # 0.6 L (1.0-4.8) k/uL Monocytes # 0.4 (0-1.0) k/uL Eosinophils # 0.0 (0-0.7) k/uL Basophils # 0.1 (0-0.2) k/uL Sodium 132 L (137-145) mmol/L Potassium 5.5 H (3.5-5.1) mmol/L Chloride 98 (98-107) mmol/L Carbon Dioxide 9 L* (22-30) mmol/L Anion Gap 25 mmol/L BUN 22 H (9-20) mg/dL Creatinine 0.89 (0.66-1.25) mg/dL Est GFR (CKD-EPI)AfAm >90 (>60 ml/min/1.73 sqM) Est GFR (CKD-EPI)NonAf >90 (>60 ml/min/1.73 sqM) Glucose 471 H (74-99) mg/dL POC Glucose (mg/dL) 413 H (75-99) mg/dL POC Glu Industrial Psychologist ID Fetterly, Tricia Plasma Lactic Acid Rcihar (0.7-2.0) mmol/L Calcium 10.6 H (8.4-10.2) mg/dL Total Bilirubin 0.7 (0.2-1.3) mg/dL AST 29 (17-59) U/L ALT 51 H (4-49) U/L Alkaline Phosphatase 151 H (38-126) U/L Troponin I (0.000-0.034) ng/mL Total Protein 9.0 H (6.3-8.2) g/dL Albumin 5.3 H (3.5-5.0) g/dL Amylase 64 (30-110) U/L Lipase 31 (23-300) U/L Acetone, Qual Positive (Negative) 05/19/21 05/19/21 Range/Units 22:40 22:40 WBC (3.8-10.6) k/uL RBC (4.30-5.90) m/uL Hgb (13.0-17.5) gm/dL Hct (39.0-53.0) % MCV (80.0-100.0) fL MCH (25.0-35.0) pg MCHC (31.0-37.0) g/dL RDW (11.5-15.5) % Plt Count (150-450) k/uL MPV Neutrophils % % Lymphocytes % % Monocytes % % Eosinophils % % Basophils % % Neutrophils # (1.3-7.7) k/uL Lymphocytes # (1.0-4.8) k/uL Monocytes # (0-1.0) k/uL Eosinophils # (0-0.7) k/uL Basophils # (0-0.2) k/uL Sodium (137-145) mmol/L Potassium (3.5-5.1) mmol/L Chloride (98-107) mmol/L Carbon Dioxide (22-30) mmol/L Anion Gap mmol/L BUN (9-20) mg/dL Creatinine (0.66-1.25) mg/dL Est GFR (CKD-EPI)AfAm (>60 ml/min/1.73 sqM) Est GFR (CKD-EPI)NonAf (>60 ml/min/1.73 sqM) Glucose (74-99) mg/dL POC Glucose (mg/dL) (75-99) mg/dL POC Glu Industrial Psychologist ID Plasma Lactic Acid Richar 2.3 H* (0.7-2.0) mmol/L Calcium (8.4-10.2) mg/dL Total Bilirubin (0.2-1.3) mg/dL AST (17-59) U/L ALT (4-49) U/L Alkaline Phosphatase (38-126) U/L Troponin I <0.012 (0.000-0.034) ng/mL Total Protein (6.3-8.2) g/dL Albumin (3.5-5.0) g/dL Amylase (30-110) U/L Lipase (23-300) U/L Acetone, Qual (Negative) Critical Care Time Critical Care Time: Yes (30 minutes) Disposition Clinical Impression: DKA (diabetic ketoacidoses), COVID-19 Disposition: ADMITTED IP TO THIS [facility] Condition: Good
[2021-05-19 22:51] LABS: Basophils # (A) 0.1 k/uL (0-0.2); Basophils % (A) 0 %; Eosinophils % (A) 0 %; HCT 54.2 % (39.0-53.0); HGB 18.2 gm/dL (13.0-17.5); Lymphocytes # (A) 0.6 k/uL (1.0-4.8); Lymphocytes % (A) 5 %; MCH 31.1 pg (25.0-35.0); MCHC 33.5 g/dL (31.0-37.0); Mean Platelet Volume 9.1; Monocytes # (A) 0.4 k/uL (0-1.0); Monocytes % (A) 3 %; Neutrophils # (A) 9.8 k/uL (1.3-7.7); Neutrophils % (A) 90 %; Platelet Count 278 k/uL (150-450); RBC 5.83 m/uL (4.30-5.90); WBC 10.9 k/uL (3.8-10.6)
[2021-05-19 23:10] LABS: ALT 51 U/L (4-49); AST 29 U/L (17-59); African American GFR (CKD) >90 (>60 ml/min/1.73 sqM); Albumin 5.3 g/dL (3.5-5.0); Alkaline Phosphatase 151 U/L (38-126); Amylase 64 U/L (30-110); Anion Gap 25 mmol/L; Blood Urea Nitrogen 22 mg/dL (9-20); Calcium 10.6 mg/dL (8.4-10.2); Chloride 98 mmol/L (98-107); Glucose 471 mg/dL (74-99); Lipase 31 U/L (23-300); Non-African American GFR(CKD) >90 (>60 ml/min/1.73 sqM); Potassium 5.5 mmol/L (3.5-5.1); Sodium 132 mmol/L (137-145); Total Bilirubin 0.7 mg/dL (0.2-1.3)
[2021-05-19 23:18] LABS: Carbon Dioxide 9 mmol/L (22-30)
[2021-05-19] MEDS ORDERED: SODIUM CHLORIDE 0.9% 1,000 ML IV ONE (23:24)
[2021-05-19] MEDS ORDERED: INSULIN REGULAR 100 UNIT/ML VIAL (IV) IV STA (23:24)
[2021-05-19] MEDS ORDERED: SODIUM CHLORIDE 0.9% 1,000 ML IV SCH (23:30)
[2021-05-19] MEDS ORDERED: INSULIN REGULAR 100 UNIT in SODIUM CHLORIDE 0.9% 100 ML IV SCH (23:45)
[2021-05-20 00:23] LABS: Glucose,Whole Blood 434 mg/dL (75-99)
[2021-05-20 00:38] LABS: African American GFR (CKD) >90 (>60 ml/min/1.73 sqM); Anion Gap 17 mmol/L; Blood Urea Nitrogen 22 mg/dL (9-20); Carbon Dioxide 13 mmol/L (22-30); Chloride 102 mmol/L (98-107); Glucose 446 mg/dL (74-99); Non-African American GFR(CKD) >90 (>60 ml/min/1.73 sqM); Potassium 5.3 mmol/L (3.5-5.1); Sodium 132 mmol/L (137-145)
[2021-05-20 00:59] LABS: Appearance,Urine Clear (Clear); Bilirubin,Urine Negative (Negative); Blood,Urine Negative (Negative); Color,Urine Light Yellow; Glucose,Urine (UA) 4+ (Negative); Hyaline Casts,Urine 3 /lpf (0-2); Leukocyte Esterase,Urine Negative (Negative); Mucus,Urine Rare /hpf; Nitrite,Urine Negative (Negative); Protein,Urine 1+ (Negative); Specific Gravity,Urine 1.038 (1.001-1.035); Urobilinogen,Urine <2.0 mg/dL (<2.0)
[2021-05-20 01:03] LABS: Ketones,Urine 4+ (Negative)
[2021-05-20 01:25] LABS: Glucose,Whole Blood 244 mg/dL (75-99)
[2021-05-20] MEDS ORDERED: DEXTROSE 5%-0.45% NACL 1,000 ML with POTASSIUM CHLORIDE 20 MEQ IV SCH ×2 (02:15)
--- NOTE | 2021-05-20 02:21 | XR ---
EXAMINATION TYPE: XR chest 2V DATE OF EXAM: 05/20/2021 COMPARISON: NONE HISTORY: Short of breath TECHNIQUE: 2 views FINDINGS: Heart and mediastinum are normal. Lungs are clear. Diaphragm is normal. Bony thorax appears normal. There are chest leads. IMPRESSION: Normal chest.
[2021-05-20 02:27] LABS: Glucose,Whole Blood 203 mg/dL (75-99)
[2021-05-20] MEDS: D5-0.45% NACL WITH KCL 20MEQ/L 1,000 ML IV SCH ×2 (03:05→19:45)
[2021-05-20 04:30] LABS: African American GFR (CKD) >90 (>60 ml/min/1.73 sqM); Anion Gap 11 mmol/L; Blood Urea Nitrogen 21 mg/dL (9-20); Carbon Dioxide 19 mmol/L (22-30); Chloride 106 mmol/L (98-107); Glucose 180 mg/dL (74-99); Non-African American GFR(CKD) >90 (>60 ml/min/1.73 sqM); Phosphorus 2.5 mg/dL (2.5-4.5); Potassium 5.1 mmol/L (3.5-5.1); Sodium 136 mmol/L (137-145)
[2021-05-20 04:37] LABS: Glucose,Whole Blood 161 mg/dL (75-99)
[2021-05-20 06:19] LABS: Glucose,Whole Blood 153 mg/dL (75-99)
[2021-05-20 06:58] LABS: Glucose,Whole Blood 125 mg/dL (75-99)
[2021-05-20 08:04] LABS: Glucose,Whole Blood 103 mg/dL (75-99)
[2021-05-20 08:29] LABS: African American GFR (CKD) >90 (>60 ml/min/1.73 sqM); Anion Gap 8 mmol/L; Blood Urea Nitrogen 19 mg/dL (9-20); Calcium 8.9 mg/dL (8.4-10.2); Carbon Dioxide 22 mmol/L (22-30); Chloride 107 mmol/L (98-107); Glucose 116 mg/dL (74-99); Non-African American GFR(CKD) >90 (>60 ml/min/1.73 sqM); Potassium 4.4 mmol/L (3.5-5.1); Sodium 137 mmol/L (137-145)
[2021-05-20 09:16] LABS: Glucose,Whole Blood 100 mg/dL (75-99)
--- NOTE | 2021-05-20 11:00 | P.CNPUL ---
History of Present Illness Consult date: 05/20/21 Requesting physician: Gamaliel Hugo Reason for consult: other (Critical care Management) Chief complaint: Vomiting History of present illness: This is a very pleasant 46-year-old male patient who follows with Dr. Cardenas as his primary care provider. He has a history of diabetes mellitus, type I, hyperlipidemia, previous CoVID infection in September 2020 that resulted in abdominal pain and cramping. At that time he had been admitted for diabetic ketoacidosis. Recently he states on 05/17/2020 when he had a maternal vaccine. Next day he started having nausea and vomiting with some diffuse abdominal discomfort and pain. He had more than 10 episodes of vomiting and presented here to the emergency room last evening. White count 10.9. Hemoglobin 18.2. Lymphocytes 0.6. Initial sodium 132. Potassium 5.5. Bicarb 19. Anion gap 25. Creatinine 0.94. Glucose 471. Lactic acid 2.3. Amylase 64. Lipase 31. Acetone positive. Urinalysis with 4+ glucose. 4+ ketones. Fabian virus by PCR not detected. He was initiated on the DKA protocol and admitted to the intensive care unit. He is seen today in consultation in the ICU. He is currently awake and alert in no acute distress. He's D5.45 with 20 KCl at 150 MLS per hour. Current labs reveal sodium 137. Potassium 4.4. Bicarb 22. Anion gap 8. Creatinine 0.79. Glucose 116. Maintaining good O2 saturations in the 90s on room air. Chest x-ray showed no acute pulmonary process. Review of Systems REVIEW OF SYSTEMS: CONSTITUTIONAL: Denies any recent significant weight loss or weight gain. EYES: Denies change in vision. EARS, NOSE, MOUTH, THROAT: Denies headaches, denies sore throat. CARDIOVASCULAR: Denies chest pain, palpitations or syncopal episodes. RESPIRATORY: Denies shortness of breath, cough, congestion or hemoptysis. GASTROINTESTINAL: Positive for nausea, vomiting, abdominal pain GENITOURINARY: Denies hematuria, denies infections. MUSKULOSKELETAL: Denies pain, denies swelling. INTEGUMENTARY: Denies rash, denies eczema. NEUROLOGICAL: Denies recent memory loss, no recent seizure activity. PSYCHIATRIC: Denies anxiety, denies depression. HEMATOLOGIC/LYMPHATIC: Denies anemia, denies enlarged lymph nodes. Past Medical History Past Medical History: Diabetes Mellitus, Eye Disorder History of Any Multi-Drug Resistant Organisms: None Reported Past Surgical History: Hernia Repair Past Psychological History: No Psychological Hx Reported Smoking Status: Former smoker Past Alcohol Use History: None Reported Past Drug Use History: Marijuana - Past Family History Father Family Medical History: Cancer Medications and Allergies Home Medications Medication Instructions Recorded Confirmed Type Atorvastatin [Lipitor] 80 mg PO HS 10/10/20 05/19/21 History Ezetimibe [Zetia] 10 mg PO HS 05/19/21 05/19/21 History Insulin Aspart (Niacinamide) 20 units SQ BID-W/MEALS 05/19/21 05/19/21 History [Fiasp 100 Unit/ml Flextouch Pen] Insulin Degludec [Tresiba 70 units SQ HS 05/19/21 05/19/21 History Flextouch U-200 Pen] Allergies Allergy/AdvReac Type Severity Reaction Status Date / Time dapagliflozin [From [facility]] Allergy Rash/Hives Verified 05/19/21 23:46 insulin aspart Allergy Rash/Hives Verified 05/19/21 23:46 [From Novolog Mix 70-30 U-100 Insuln] insulin aspart protamine Allergy Rash/Hives Verified 05/19/21 23:46 human [From Novolog Mix 70-30 U-100 Insuln] Physical Exam Vitals: Vital Signs Temp Pulse Resp BP Pulse Ox 05/20/21 08:00 83 15 128/92 98 05/20/21 07:00 95 11 L 119/87 98 05/20/21 06:00 80 14 126/76 97 05/20/21 05:00 93 26 H 126/84 95 05/20/21 04:00 98.1 F 112 H 19 134/80 95 05/20/21 03:00 86 18 134/90 96 05/20/21 02:28 97 05/20/21 00:25 105 H 18 146/91 99 05/19/21 21:13 97.6 F 116 H 22 148/90 98 Intake and Output 05/19/21 05/20/21 05/20/21 22:59 06:59 14:59 Intake Total 649.6 150 Output Total 200 Balance 449.6 150 Intake: Intake, IV Titration 649.6 150 Amount D5-0.45% NaCl with KCl 600 150 20Meq/l 1,000 ml @ 150 mls/hr IV .[id number] LASHAE Rx# :[id number] Insulin Regular 100 unit 49.6 In Sodium Chloride 0.9% 100 ml @ 0.1 UNITS/KG/HR 7.33 mls/hr IV .[id number] LASHAE Rx#:[id number] Output: Urine 200 Other: Voiding Method Urinal Urinal Weight 72.575 kg 72.575 kg GENERAL EXAM: Alert, very pleasant 46-year-old gentleman, on room air, comfortable in no apparent distress. HEAD: Normocephalic. EYES: Normal reaction of pupils, equal size. NOSE: Clear with pink turbinates. THROAT: No erythema or exudates. NECK: No masses, no JVD. CHEST: No chest wall deformity. LUNGS: Equal air entry with no crackles, wheeze, rhonchi or dullness. CVS: S1 and S2 normal with no audible murmur, regular rhythm. ABDOMEN: No hepatosplenomegaly, normal bowel sounds, no guarding or rigidity. SPINE: No scoliosis or deformity SKIN: No rashes CENTRAL NERVOUS SYSTEM: No focal deficits, tone is normal in all 4 extremities. EXTREMITIES: There is no peripheral edema. No clubbing, no cyanosis. Peripheral pulses are intact. Results - Laboratory Findings CBC and BMP: 05/19/21 22:40 05/20/21 07:56 Abnormal lab findings: Abnormal Labs 05/19/21 05/19/21 05/19/21 21:17 22:40 22:40 WBC 10.9 H Hgb 18.2 H Hct 54.2 H Neutrophils # 9.8 H Lymphocytes # 0.6 L Sodium 132 L Potassium 5.5 H Carbon Dioxide 9 L* BUN 22 H Glucose 471 H POC Glucose (mg/dL) 413 H Plasma Lactic Acid Richar Calcium 10.6 H ALT 51 H Alkaline Phosphatase 151 H Total Protein 9.0 H Albumin 5.3 H Ur Specific [place] Urine Protein Urine Glucose (UA) Urine Ketones Hyaline Casts Urine Mucus 05/19/21 05/19/21 05/20/21 22:40 23:54 00:22 WBC Hgb Hct Neutrophils # Lymphocytes # Sodium 132 L Potassium 5.3 H Carbon Dioxide 13 L BUN 22 H Glucose 446 H POC Glucose (mg/dL) 434 H Plasma Lactic Acid Richar 2.3 H* Calcium ALT Alkaline Phosphatase Total Protein Albumin Ur Specific [place] Urine Protein Urine Glucose (UA) Urine Ketones Hyaline Casts Urine Mucus 05/20/21 05/20/21 05/20/21 00:32 01:23 02:26 WBC Hgb Hct Neutrophils # Lymphocytes # Sodium Potassium Carbon Dioxide BUN Glucose POC Glucose (mg/dL) 244 H 203 H Plasma Lactic Acid Richar Calcium ALT Alkaline Phosphatase Total Protein Albumin Ur Specific [place] 1.038 H Urine Protein 1+ H Urine Glucose (UA) 4+ H Urine Ketones 4+ H Hyaline Casts 3 H Urine Mucus Rare H 05/20/21 05/20/21 05/20/21 03:33 04:35 06:17 WBC Hgb Hct Neutrophils # Lymphocytes # Sodium 136 L Potassium Carbon Dioxide 19 L BUN 21 H Glucose 180 H POC Glucose (mg/dL) 161 H 153 H Plasma Lactic Acid Richar Calcium ALT Alkaline Phosphatase Total Protein Albumin Ur Specific [place] Urine Protein Urine Glucose (UA) Urine Ketones Hyaline Casts Urine Mucus 05/20/21 05/20/21 05/20/21 06:56 07:56 08:03 WBC Hgb Hct Neutrophils # Lymphocytes # Sodium Potassium Carbon Dioxide BUN Glucose 116 H POC Glucose (mg/dL) 125 H 103 H Plasma Lactic Acid Richar Calcium ALT Alkaline Phosphatase Total Protein Albumin Ur Specific [place] Urine Protein Urine Glucose (UA) Urine Ketones Hyaline Casts Urine Mucus 05/20/21 09:14 WBC Hgb Hct Neutrophils # Lymphocytes # Sodium Potassium Carbon Dioxide BUN Glucose POC Glucose (mg/dL) 100 H Plasma Lactic Acid Richar Calcium ALT Alkaline Phosphatase Total Protein Albumin Ur Specific [place] Urine Protein Urine Glucose (UA) Urine Ketones Hyaline Casts Urine Mucus - Diagnostic Findings Chest x-ray: image reviewed (No acute pulmonary process) Assessment and Plan Assessment: 1 Acute diabetic ketoacidosis secondary to recent nausea and excessive vomiting seemed to have began after receiving the Moderna vaccine on 05/17/2021 2 Acute anion Metabolic acidosis secondary to above, recovered 3 Hyperkalemia secondary to above, recovered 4 Lactic acidosis, recovered 5 History of diabetes mellitus, type I 6 History of COVID-19 infection with GI symptoms resulting in a DKA presentation in September 2020 Plan: The patient was seen and evaluated by Dr. Stevens Currently stable from the critical care standpoint Anion gap is closed, bicarb recovered Cleared for transfer out of the ICU today We'll continue to follow and make further recommendations based on his clinical status I, the cosigning physician, performed a history & physical examination of the patient. Lungs sounds are clear. Maintaining good O2 saturations in the 90s on room air. I discussed the assessment and plan of care with my nurse practitioner, Ruth Chamberlain. I attest to the above consultation as dictated by her. Time with Patient: Greater than 30
[2021-05-20] MEDS ORDERED: INSULIN DETEMIR (LEVEMIR) 100 UNIT/ML SYR SQ STA (11:05)
[2021-05-20] MEDS ORDERED: INSULIN ASPART SQ SCH (11:15)
[2021-05-20 12:05] LABS: Glucose,Whole Blood 99 mg/dL (75-99)
[2021-05-20 12:46] VITALS: BMI 27.4
--- NOTE | 2021-05-20 13:08 | P.HPIM ---
History of Present Illness H&P Date: 05/20/21 This is a pleasant 46-year-old male presented to the EC status post 4 days of vomiting. Patient also Dr. Cardenas in the office, however he is switching to a new PCP Dr. Mullins on discharge. Patient was positive for Covid in September 2020 which required hospitalization due to abdominal pain, nausea, and vomiting, and DKA, which patients states is similar to the what he is experiencing. Wednesday patient had his first dose of the moderna vaccination and then Wednesday experienced diffuse abdominal pain, abdominal tenderness, and multiple episodes of vomiting. He states that he was unable to keep any liquids down and was not tolerating a diet. He did note in the EC there were two episodes of vomiting that did have a pink tinge to them, but denies any emesis that looks like coffee grounds. Past medical history significant for type I diabetes mellitus maintained on injectible insulin, he does have allergies to multiple diabetic medications, hyperlipidemia. Patient is an ex-smoker, reports marijuana use, denies alcohol use. Patient states that he is usually compliant with his diabetic medication. When he came into the EC, labs on admission showed a white blood cell count 10.9, hemoglobin 18.2, sodium 132, potassium 5.3, CO2 13, BUN 22, creatinine 0.94, glucose was in the 400s, lactic acid 2.3, calcium 10.6, ALT 51, alk phos 151. Troponin was negative. Amylase and lipase were within normal limits. Urinalysis was positive for protein, glucose, ketones and he was acetone positive. Covid PCR was not detected. Patient was started on insulin drip per protocol and transferred to the intensive care unit. His anion gap closed today it is now 8, CO2 22, sodium is improved 137, potassium 4.4. Sugars are in the low 100s to high 90s. Patient is overall feeling better, he denies a ny further episodes of vomiting. He can be transitioned to his home injectables which his will bring from home and we can try a clear liquid diet. REVIEW OF SYSTEMS: CONSTITUTIONAL: No fever, no malaise, no fatigue. HEENT: No recent visual problems or hearing problems. Denied any sore throat. CARDIOVASCULAR: No chest pain, orthopnea, PND, no palpitations, no syncope. PULMONARY: No shortness of breath, no cough, no hemoptysis. GASTROINTESTINAL: Denies diarrhea, reports vomiting, reports abdominal pain and tenderness NEUROLOGICAL: No headaches, no weakness, no numbness. HEMATOLOGICAL: Denies any bleeding or petechiae. GENITOURINARY: Denies any burning micturition, frequency, or urgency. MUSCULOSKELETAL/RHEUMATOLOGICAL: Denies any joint pain, swelling, or any muscle pain. ENDOCRINE: Denies any polyuria or polydipsia. The rest of the 14-point review of systems is negative. PHYSICAL EXAMINATION: GENERAL: The patient is alert and oriented x3, not in any acute distress. Well developed, well nourished. HEENT: Pupils are round and equally reacting to light. EOMI. No scleral icterus. No conjunctival pallor. Normocephalic, atraumatic. No pharyngeal erythema. No thyromegaly. CARDIOVASCULAR: S1 and S2 present. No murmurs, rubs, or gallops. PULMONARY: Chest is clear to auscultation, no wheezing or crackles. ABDOMEN: Soft, tender to palpation all quadrants, nondistended, hypoactive bowel sounds. No palpable organomegaly. MUSCULOSKELETAL: No joint swelling or deformity. EXTREMITIES: No cyanosis, clubbing, or pedal edema. NEUROLOGICAL: Gross neurological examination did not reveal any focal deficits. SKIN: No rashes. Assessment and Plan Assessment Acute Diabetic Ketoacidosis secondary to poor oral intake and multiple episodes of vomiting which began after receiving first dose of moderna vaccination on 05/17/21 Lactic acidosis secondary to anion metabolic acidosis from vomiting, resolved Hyperkalemia secondary to above Hyponatremia secondary to decreased oral intake Hypertension secondary to dehydration, no history of hypertension Leukocytosis, reactive Type I diabetic with hyperglycemia, on injectable insulin Hyperlipidema Previous infection with Covid in September of 2020 which resulted in DKA secondary to GI symptoms with vomiting DVT prophylaxis GI prophylaxis Full Code Plan Transition to home dose of diabetic injectibles Clear liquid diet advance as tolerated Transfer to medical floor Continue all other home medications Repeat labs Discharge home later today if tolerating oral intake. Past Medical History Past Medical History: Diabetes Mellitus, Eye Disorder History of Any Multi-Drug Resistant Organisms: None Reported Past Surgical History: Hernia Repair Past Psychological History: No Psychological Hx Reported Smoking Status: Former smoker Past Alcohol Use History: None Reported Past Drug Use History: Marijuana - Past Family History Father Family Medical History: Cancer Medications and Allergies Home Medications Medication Instructions Recorded Confirmed Type Atorvastatin [Lipitor] 80 mg PO HS 10/10/20 05/19/21 History Ezetimibe [Zetia] 10 mg PO HS 05/19/21 05/19/21 History Insulin Aspart (Niacinamide) 20 units SQ BID-W/MEALS 05/19/21 05/19/21 History [Fiasp 100 Unit/ml Flextouch Pen] Insulin Degludec [Tresiba 70 units SQ HS 05/19/21 05/19/21 History Flextouch U-200 Pen] Allergies Allergy/AdvReac Type Severity Reaction Status Date / Time dapagliflozin [From [facility]] Allergy Rash/Hives Verified 05/19/21 23:46 insulin aspart Allergy Rash/Hives Verified 05/19/21 23:46 [From Novolog Mix 70-30 U-100 Insuln] insulin aspart protamine Allergy Rash/Hives Verified 05/19/21 23:46 human [From Novolog Mix 70-30 U-100 Insuln] Physical Exam Vitals: Vital Signs Temp Pulse Resp BP Pulse Ox 05/20/21 08:00 83 15 128/92 98 05/20/21 07:00 95 11 L 119/87 98 05/20/21 06:00 80 14 126/76 97 05/20/21 05:00 93 26 H 126/84 95 05/20/21 04:00 98.1 F 112 H 19 134/80 95 05/20/21 03:00 86 18 134/90 96 05/20/21 02:28 97 05/20/21 00:25 105 H 18 146/91 99 05/19/21 21:13 97.6 F 116 H 22 148/90 98 Intake and Output 05/19/21 05/20/21 05/20/21 22:59 06:59 14:59 Intake Total 649.6 150 Output Total 200 Balance 449.6 150 Intake: Intake, IV Titration 649.6 150 Amount D5-0.45% NaCl with KCl 600 150 20Meq/l 1,000 ml @ 150 mls/hr IV .[id number] [facility] Rx# :[id number] Insulin Regular 100 unit 49.6 In Sodium Chloride 0.9% 100 ml @ 0.1 UNITS/KG/HR 7.33 mls/hr IV .[id number] [facility] Rx#:[id number] Output: Urine 200 Other: Voiding Method Urinal Urinal Weight 72.575 kg 72.575 kg Results CBC & Chem 7: 05/19/21 22:40 05/20/21 07:56 Labs: Abnormal Lab Results - Last 24 Hours (Table) 05/19/21 05/19/21 05/19/21 Range/Units 21:17 22:40 22:40 WBC 10.9 H (3.8-10.6) k/uL Hgb 18.2 H (13.0-17.5) gm/dL Hct 54.2 H (39.0-53.0) % Neutrophils # 9.8 H (1.3-7.7) k/uL Lymphocytes # 0.6 L (1.0-4.8) k/uL Sodium 132 L (137-145) mmol/L Potassium 5.5 H (3.5-5.1) mmol/L Carbon Dioxide 9 L* (22-30) mmol/L BUN 22 H (9-20) mg/dL Glucose 471 H (74-99) mg/dL POC Glucose (mg/dL) 413 H (75-99) mg/dL Plasma Lactic Acid Richar (0.7-2.0) mmol/L Calcium 10.6 H (8.4-10.2) mg/dL ALT 51 H (4-49) U/L Alkaline Phosphatase 151 H (38-126) U/L Total Protein 9.0 H (6.3-8.2) g/dL Albumin 5.3 H (3.5-5.0) g/dL Ur Specific [place] (1.001-1.035) Urine Protein (Negative) Urine Glucose (UA) (Negative) Urine Ketones (Negative) Hyaline Casts (0-2) /lpf Urine Mucus (None) /hpf 05/19/21 05/19/21 05/20/21 Range/Units 22:40 23:54 00:22 WBC (3.8-10.6) k/uL Hgb (13.0-17.5) gm/dL Hct (39.0-53.0) % Neutrophils # (1.3-7.7) k/uL Lymphocytes # (1.0-4.8) k/uL Sodium 132 L (137-145) mmol/L Potassium 5.3 H (3.5-5.1) mmol/L Carbon Dioxide 13 L (22-30) mmol/L BUN 22 H (9-20) mg/dL Glucose 446 H (74-99) mg/dL POC Glucose (mg/dL) 434 H (75-99) mg/dL Plasma Lactic Acid Richar 2.3 H* (0.7-2.0) mmol/L Calcium (8.4-10.2) mg/dL ALT (4-49) U/L Alkaline Phosphatase (38-126) U/L Total Protein (6.3-8.2) g/dL Albumin (3.5-5.0) g/dL Ur Specific [place] (1.001-1.035) Urine Protein (Negative) Urine Glucose (UA) (Negative) Urine Ketones (Negative) Hyaline Casts (0-2) /lpf Urine Mucus (None) /hpf 05/20/21 05/20/21 05/20/21 Range/Units 00:32 01:23 02:26 WBC (3.8-10.6) k/uL Hgb (13.0-17.5) gm/dL Hct (39.0-53.0) % Neutrophils # (1.3-7.7) k/uL Lymphocytes # (1.0-4.8) k/uL Sodium (137-145) mmol/L Potassium (3.5-5.1) mmol/L Carbon Dioxide (22-30) mmol/L BUN (9-20) mg/dL Glucose (74-99) mg/dL POC Glucose (mg/dL) 244 H 203 H (75-99) mg/dL Plasma Lactic Acid Richar (0.7-2.0) mmol/L Calcium (8.4-10.2) mg/dL ALT (4-49) U/L Alkaline Phosphatase (38-126) U/L Total Protein (6.3-8.2) g/dL Albumin (3.5-5.0) g/dL Ur Specific [place] 1.038 H (1.001-1.035) Urine Protein 1+ H (Negative) Urine Glucose (UA) 4+ H (Negative) Urine Ketones 4+ H (Negative) Hyaline Casts 3 H (0-2) /lpf Urine Mucus Rare H (None) /hpf 05/20/21 05/20/21 05/20/21 Range/Units 03:33 04:35 06:17 WBC (3.8-10.6) k/uL Hgb (13.0-17.5) gm/dL Hct (39.0-53.0) % Neutrophils # (1.3-7.7) k/uL Lymphocytes # (1.0-4.8) k/uL Sodium 136 L (137-145) mmol/L Potassium (3.5-5.1) mmol/L Carbon Dioxide 19 L (22-30) mmol/L BUN 21 H (9-20) mg/dL Glucose 180 H (74-99) mg/dL POC Glucose (mg/dL) 161 H 153 H (75-99) mg/dL Plasma Lactic Acid Richar (0.7-2.0) mmol/L Calcium (8.4-10.2) mg/dL ALT (4-49) U/L Alkaline Phosphatase (38-126) U/L Total Protein (6.3-8.2) g/dL Albumin (3.5-5.0) g/dL Ur Specific [place] (1.001-1.035) Urine Protein (Negative) Urine Glucose (UA) (Negative) Urine Ketones (Negative) Hyaline Casts (0-2) /lpf Urine Mucus (None) /hpf 05/20/21 05/20/21 05/20/21 Range/Units 06:56 07:56 08:03 WBC (3.8-10.6) k/uL Hgb (13.0-17.5) gm/dL Hct (39.0-53.0) % Neutrophils # (1.3-7.7) k/uL Lymphocytes # (1.0-4.8) k/uL Sodium (137-145) mmol/L Potassium (3.5-5.1) mmol/L Carbon Dioxide (22-30) mmol/L BUN (9-20) mg/dL Glucose 116 H (74-99) mg/dL POC Glucose (mg/dL) 125 H 103 H (75-99) mg/dL Plasma Lactic Acid Richar (0.7-2.0) mmol/L Calcium (8.4-10.2) mg/dL ALT (4-49) U/L Alkaline Phosphatase (38-126) U/L Total Protein (6.3-8.2) g/dL Albumin (3.5-5.0) g/dL Ur Specific [place] (1.001-1.035) Urine Protein (Negative) Urine Glucose (UA) (Negative) Urine Ketones (Negative) Hyaline Casts (0-2) /lpf Urine Mucus (None) /hpf 05/20/21 Range/Units 09:14 WBC (3.8-10.6) k/uL Hgb (13.0-17.5) gm/dL Hct (39.0-53.0) % Neutrophils # (1.3-7.7) k/uL Lymphocytes # (1.0-4.8) k/uL Sodium (137-145) mmol/L Potassium (3.5-5.1) mmol/L Carbon Dioxide (22-30) mmol/L BUN (9-20) mg/dL Glucose (74-99) mg/dL POC Glucose (mg/dL) 100 H (75-99) mg/dL Plasma Lactic Acid Richar (0.7-2.0) mmol/L Calcium (8.4-10.2) mg/dL ALT (4-49) U/L Alkaline Phosphatase (38-126) U/L Total Protein (6.3-8.2) g/dL Albumin (3.5-5.0) g/dL Ur Specific [place] (1.001-1.035) Urine Protein (Negative) Urine Glucose (UA) (Negative) Urine Ketones (Negative) Hyaline Casts (0-2) /lpf Urine Mucus (None) /hpf Thrombosis Risk Factor Assmnt - Choose All That Apply Any of the Below Risk Factors Present?: No Assessment and Plan Time with Patient: Greater than 30
[2021-05-20 17:08] LABS: Glucose,Whole Blood 189 mg/dL (75-99)
[2021-05-20] MEDS: INSULIN ASPART SQ SCH (18:28)
[2021-05-20 20:08] LABS: Glucose,Whole Blood 187 mg/dL (75-99)
[2021-05-20] MEDS ORDERED: ATORVASTATIN 80 MG TAB PO SCH (21:00)
[2021-05-20] MEDS ORDERED: EZETIMIBE 10 MG TAB PO SCH (21:00)
[2021-05-21 06:55] LABS: Glucose,Whole Blood 232 mg/dL (75-99)
[2021-05-21] MEDS: INSULIN ASPART SQ SCH (06:55)
[2021-05-21 09:25] VITALS: BP 140/93; PULSE 75; RESP 16; TEMP 98.5
--- NOTE | 2021-05-21 11:48 | P.PN ---
Subjective Progress Note Date: 05/21/21 Principal diagnosis: DKA This is a very pleasant 46-year-old male patient who follows with Dr. Cardenas as his primary care provider. He has a history of diabetes mellitus, type I, hyperlipidemia, previous CoVID infection in September 2020 that resulted in abdominal pain and cramping. At that time he had been admitted for diabetic ketoacidosis. Recently he states on 05/17/2020 when he had a maternal vaccine. Next day he started having nausea and vomiting with some diffuse abdominal discomfort and pain. He had more than 10 episodes of vomiting and presented here to the emergency room last evening. White count 10.9. Hemoglobin 18.2. Lymphocytes 0.6. Initial sodium 132. Potassium 5.5. Bicarb 19. Anion gap 25. Creatinine 0.94. Glucose 471. Lactic acid 2.3. Amylase 64. Lipase 31. Acetone positive. Urinalysis with 4+ glucose. 4+ ketones. Fabian virus by PCR not detected. He was initiated on the DKA protocol and admitted to the intensive care unit. He is seen today in consultation in the ICU. He is currently awake and alert in no acute distress. He's D5.45 with 20 KCl at 150 MLS per hour. Current labs reveal sodium 137. Potassium 4.4. Bicarb 22. Anion gap 8. Creatinine 0.79. Glucose 116. Maintaining good O2 saturations in the 90s on room air. Chest x-ray showed no acute pulmonary process. The patient is seen today 05/21/2021 in follow-up in the intensive care unit. He is currently sitting up in bed. Awake and alert in no acute distress. He is maintaining good O2 saturations in the 90s on room air. No IV fluids currently. He is feeling back to his baseline. Current glucose 232. His appetite is good. No further nausea or vomiting. He is to resume his own Fiasp 100 u/ml Flextouch pen and Tresiba. Objective - Vital Signs Vital signs: Vital Signs Temp 98.5 F 05/21/21 08:00 Pulse 75 05/21/21 08:00 Resp 16 05/21/21 08:00 BP 140/93 05/21/21 08:00 Pulse Ox 98 05/21/21 01:34 Intake & Output 11/23/21 11/24/21 11/24/21 18:59 06:59 18:59 Intake Total 150 540 Output Total 500 500 Balance -350 40 Weight 72.575 kg Intake: Intake, IV Titration 150 Amount D5-0.45% NaCl with KCl 150 20Meq/l 1,000 ml @ 150 mls/hr IV .Q6H40M [facility] Rx# :[id number] Oral 540 Output: Urine 500 500 Other: Voiding Method Urinal Urinal # Bowel Movements 1 - Exam GENERAL EXAM: Alert, very pleasant 46-year-old gentleman, on room air, comfortable in no apparent distress. HEAD: Normocephalic. EYES: Normal reaction of pupils, equal size. NOSE: Clear with pink turbinates. THROAT: No erythema or exudates. NECK: No masses, no JVD. CHEST: No chest wall deformity. LUNGS: Equal air entry with no crackles, wheeze, rhonchi or dullness. CVS: S1 and S2 normal with no audible murmur, regular rhythm. ABDOMEN: No hepatosplenomegaly, normal bowel sounds, no guarding or rigidity. SPINE: No scoliosis or deformity SKIN: No rashes CENTRAL NERVOUS SYSTEM: No focal deficits, tone is normal in all 4 extremities. EXTREMITIES: There is no peripheral edema. No clubbing, no cyanosis. Peripheral pulses are intact. - Labs CBC & Chem 7: 05/19/21 22:40 05/20/21 07:56 Labs: Abnormal Lab Results - Last 24 Hours (Table) 05/20/21 05/20/21 05/21/21 Range/Units 17:06 20:06 06:53 POC Glucose (mg/dL) 189 H 187 H 232 H (75-99) mg/dL Assessment and Plan Assessment: 1 Acute diabetic ketoacidosis secondary to recent nausea and excessive vomiting seemed to have began after receiving the Moderna vaccine on 05/17/2021. Re covered. 2 Acute anion Metabolic acidosis secondary to above, recovered 3 Hyperkalemia secondary to above, recovered 4 Lactic acidosis, recovered 5 History of diabetes mellitus, type I 6 History of COVID-19 infection with GI symptoms resulting in a DKA presentation in September 2020 Plan: The patient was seen and evaluated by Dr. Stevens Currently stable from the critical care standpoint Appetite is good The plan is to discharge home today I, the cosigning physician, performed a history & physical examination of the patient. Lungs sounds are clear. Maintaining good O2 saturations in the 90s on room air. I discussed the assessment and plan of care with my nurse practitio ner, Ruth Chamberlain. I attest to the above note as dictated by her.
--- NOTE | 2021-05-21 13:20 | P.DS ---
Providers Date of admission: 05/19/21 23:26 Attending physician: Gamaliel Hugo Consults: 05/20/21 01:34 Consult Physician Stat Consulting Provider: Ridge Stevens Reason/Comments: DKA Do you want consulting provider notified?: Already Contacted Primary care physician: ZEV Whittaker Hospital Course: Final Diagnosis Acute Diabetic Ketoacidosis secondary to poor oral intake and multiple episodes of vomiting which began after receiving first dose of moderna vaccination on 05/17/21 Lactic acidosis secondary to anion metabolic acidosis from vomiting, resolved Hyperkalemia secondary to above, resolved Hyponatremia secondary to decreased oral intake Hypertension secondary to dehydration, no history of hypertension Leukocytosis, reactive Type I diabetic with hyperglycemia, on injectable insulin Hyperlipidema Previous infection with Covid in September of 2020 which resulted in DKA secondary to GI symptoms with vomiting Discharge disposition Patient is discharged home in a stable condition. He is able to resume his home dose of injectables, sugars are in the 180s which is consistent with his sugars at home. Hospital course This is a pleasant 46-year-old male who presented to the with complaints of vomiting which began after receiving his first dose of Moderna vaccination on 05/17/2021. This is a similar reaction to when he was diagnosed with Covid in September of this year. He was admitted to the hospital with DKA and started on an insulin drip in the ICU. His anion gap closed and he was transitioned back to his home dose of injectables which his family brought from home. Patient experienced significant nausea this hospitalization, we were able to slowly advance his diet and today he is feeling ready for discharge. 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 Patient is discharged home in a two-day supply of Zofran. He is recommended to slowly increase his oral intake. Abdomen is nontender today, positive bowel sounds. Patient denies any chest pain, chest pressure, cough or shortness of breath. Blood pressure today is 140/93, heart rate 75, afebrile, 98% on room air. Thank you for allowing us to participate in the care of this patient. Patient Condition at Discharge: Good Plan - Discharge Summary Discharge Rx Participant: No New Discharge Prescriptions: New Ondansetron Odt [Zofran Odt] 4 mg PO Q8HR PRN #6 tab PRN Reason: Nausea Continue Ezetimibe [Zetia] 10 mg PO HS Insulin Degludec [Tresiba Flextouch U-200 Pen] 70 units SQ HS Insulin Aspart (Niacinamide) [Fiasp 100 Unit/ml Flextouch Pen] 20 units SQ BID-W/MEALS Atorvastatin [Lipitor] 80 mg PO HS Discharge Medication List Atorvastatin [Lipitor] 80 mg PO HS 10/10/20 [History] Ezetimibe [Zetia] 10 mg PO HS 05/19/21 [History] Insulin Aspart (Niacinamide) [Fiasp 100 Unit/ml Flextouch Pen] 20 units SQ BID- W/MEALS 05/19/21 [History] Insulin Degludec [Tresiba Flextouch U-200 Pen] 70 units SQ HS 05/19/21 [History] Ondansetron Odt [Zofran Odt] 4 mg PO Q8HR PRN #6 tab 05/20/21 [Rx] Follow up Appointment(s)/Referral(s): Aspen Mullins, ZEV [Primary Care Provider] - 1-2 Days (Patient has appointment scheduled for May 29 2021.) Ambulatory/Diagnostic Orders: Basic Metabolic Panel [LAB.AMB] Time Frame: 2 Days, Location: None Selected Complete Blood Count w/diff [LAB.AMB] Time Frame: 2 Days, Location: None Selected Discharge Disposition: HOME SELF-CARE
[2021-05-21] MEDS ORDERED: TRESIBA (INSULIN DEGLUDEC) SQ SCH (21:00)
== END 2021-05-21 11:33 | disposition home or self-care (01) | DRG 639 ==
LOC: EC 19:46 → 2SICU 23:26
PROVIDERS: ADMIT Hospitalist; ATTEND Hospitalist
DX: E10.10 Type 1 diabetes mellitus with ketoacidosis without coma (principal); R11.2 Nausea with vomiting, unspecified; Z20.822 Contact with and (suspected) exposure to COVID-19; H57.9 Unspecified disorder of eye and adnexa; E87.5 Hyperkalemia; R10.9 Unspecified abdominal pain; Z86.16 Personal history of COVID-19; E87.6 Hypokalemia; E78.5 Hyperlipidemia, unspecified; E86.0 Dehydration; Z87.19 Personal history of other diseases of the digestive system; I10 Essential (primary) hypertension; Z79.4 Long term (current) use of insulin; Z79.899 Other long term (current) drug therapy; Z87.891 Personal history of nicotine dependence; Z88.8 Allergy status to other drugs, medicaments and biological substances
CPT/HCPCS: 36415; 71046; 80048; 80051; 80053; 81001; 82009; 82150; 82565; 82947; 83605; 83690; 84100; 84484; 84520; 85025; 87635; 96361; 96374; 99284

== ENCOUNTER 2023-06-02 08:04 | Day surgery (SDC) | payer BC ==
[2023-05-31 15:36] VITALS: BMI 23.3
[~2023-06-02 08:04] MED LIST: LACTATED RINGERS 1,000 ML IV SCH; LIDOCAINE 1% (10MG/ML) FOR IV START INTRADERMA PRN
[2023-06-02 08:44] VITALS: RESP 16; TEMP 99
[2023-06-02 08:44] LABS: Glucose,Whole Blood 108 mg/dL (70-110)
[2023-06-02] MEDS ORDERED: PROPOFOL 10 MG/ML 20 ML VIAL IV ONE (08:51)
[2023-06-02] MEDS ORDERED: LIDOCAINE 1% INJ 10MG/ML (20 ML MDV) ONE (08:51)
--- NOTE | 2023-06-02 09:04 | P.PCN ---
Date of Procedure: 06/02/23 Procedure(s) Performed: BRIEF HISTORY: Patient is a 48-year-old pleasant white male scheduled for an elective colonoscopy as a part of screening for colon cancer/positive cologuard PROCEDURE PERFORMED: Colonoscopy with snare polypectomy. PREOPERATIVE DIAGNOSIS: Screening for colon cancer/positive cologuard. IV sedation per Anesthesia. PROCEDURE: After informed consent was obtained, the patient, was brought into the endoscopy unit. IV sedation was administered by Anesthesia under continuous monitoring. Digital rectal examination was normal. Initially the Olympus CF-160 flexible video colonoscope was then inserted in the rectum, gradually advanced into the cecum without any difficulty. Careful examination was performed as the scope was gradually being withdrawn. Ileocecal valve and the appendiceal orifice were visualized and appeared normal. Prep was excellent. Mucosa of the cecum, ascending colon appeared normal. In the hepatic flexure there was a 7 mm polyp removed by snare polypectomy. In the transverse colon there was a 1 cm polyp removed by snare polypectomy. Rest of the, transverse colon, descending colon, sigmoid colon, and rectum appeared normal. In the rectosigmoid colon at 20 cm from anal was there was a 1 cm polyp removed by snare polypectomy. Retroflexion was performed in the rectum and no lesions were seen. The patient tolerated the procedure well. IMPRESSION: 7 mm hepatic flexure polyp status post polypectomy 1 cm transverse colon polyp status post polypectomy 1 cm rectosigmoid polyp status post polypectomy RECOMMENDATIONS: Findings of this examination were discussed with the patient as well as his family. He was advised to follow with the biopsy results. If the biopsy results adenoma he can have a repeat colonoscopy in 3 years
[2023-06-02 09:31] VITALS: BP 130/88; PULSE 66
== END 2023-06-02 09:50 | disposition home or self-care (01) ==
LOC: ORWHC2ENDO 08:04
PROVIDERS: ATTEND Internal Medicine Gastroenterology
DX: D12.3 Benign neoplasm of transverse colon (principal); E11.9 Type 2 diabetes mellitus without complications; K21.9 Gastro-esophageal reflux disease without esophagitis; Z87.891 Personal history of nicotine dependence; Z79.899 Other long term (current) drug therapy
CPT/HCPCS: 88305; 45385; J2001; J2704